=== PATIENT | male | born 1930 | race Caucasian/White ===

== ENCOUNTER 2017-03-14 08:20 | Outpatient (CLI) | payer MEDICARE, OTHER ==
[2017-03-14 12:54] LABS: BASOPHILS # (AUTO) 0.1 10^3/uL (0.0-0.1); BASOPHILS % (AUTO) 0.8 %; EOSINOPHILS # (AUTO) 0.2 10^3/uL (0.0-0.7); EOSINOPHILS % (AUTO) 3.1 %; HCT - HEMATOCRIT 39.8 % (42.0-52.0); HGB - HEMOGLOBIN 13.1 g/dL (14.0-18.0); LYMPHOCYTES # (AUTO) 2.7 10^3/uL (1.5-3.5); LYMPHOCYTES % (AUTO) 37.7 %; MEAN CORPUSCULAR HEMOGLOBIN 30.4 pg (27.0-31.0); MEAN CORPUSCULAR VOLUME 92.1 fL (80.0-94.0); MEAN PLATELET VOLUME 9.9 fL (7.4-11.4); MONOCYTES # (AUTO) 0.8 10^3/uL (0.0-1.0); NEUTROPHILS # (AUTO) 3.4 10^3/uL (1.5-6.6); NEUTROPHILS % (AUTO) 47.4 %; NUCLEATED RED BLOOD CELLS AUTO 0.1 /100WBC; RED BLOOD COUNT 4.32 10^6/uL (4.70-6.10); UNCORRECTED WHITE BLOOD COUNT 7.2 x10^3/uL; WHITE BLOOD COUNT 7.2 x10^3/uL (4.8-10.8)
[2017-03-14 13:21] LABS: ALBUMIN/GLOBULIN RATIO 1.5 (1.0-2.2); BUN - BLOOD UREA NITROGEN 20 mg/dL (6-20); CALCIUM 8.9 mg/dL (8.5-10.3); CARBON DIOXIDE - CO2 26 mmol/L (21-32); CHLORIDE 105 mmol/L (101-111); CHOL/HDL RATIO 4.5 (<5.0); CHOLESTEROL 166 mg/dL; CREATININE 1.2 mg/dL (0.6-1.2); GFR - MDRD 58 (>89); GLUCOSE 91 mg/dL (70-100); HDL CHOLESTEROL 37 mg/dL; LDL/HDL RATIO 2.9 (<3.6); POTASSIUM 4.2 mmol/L (3.5-5.0); SODIUM 137 mmol/L (135-145); TOTAL PROTEIN 6.7 g/dL (6.7-8.2); TRIGLYCERIDES 101 mg/dL; VLDL CHOLESTEROL 20 mg/dL
== END 2017-03-14 08:21 | disposition home or self-care (01) ==
LOC: LAB.WCP 08:20
PROVIDERS: ATTEND Family Medicine
DX: E78.5 Hyperlipidemia, unspecified (principal); I25.10 Atherosclerotic heart disease of native coronary artery without angina pectoris; I10 Essential (primary) hypertension; Z12.5 Encounter for screening for malignant neoplasm of prostate; N40.0 Benign prostatic hyperplasia without lower urinary tract symptoms
CPT/HCPCS: 36415; 80053; 80061; 85025; G0103; 84153

== ENCOUNTER 2017-10-21 23:40 | Outpatient (CLI) | payer MEDICARE, OTHER | END 2017-10-21 23:41 | disposition critical access hospital (66) | LOC: EMS 23:40 | PROVIDERS: ATTEND Surgery | DX: R06.02 Shortness of breath (principal); R05 Cough | CPT/HCPCS: A0425; A0429 ==

== ENCOUNTER 2017-10-21 23:59 | Inpatient (IN) | payer MEDICARE, OTHER ==
[2017-10-22 00:43] LABS: BASOPHILS % (AUTO) 0.2 %; EOSINOPHILS # (AUTO) 0.1 10^3/uL (0.0-0.7); EOSINOPHILS % (AUTO) 0.9 %; HGB - HEMOGLOBIN 14.2 g/dL (14.0-18.0); LYMPHOCYTES % (AUTO) 25.4 %; MEAN CORPUSCULAR HEMOGLOBIN 30.3 pg (27.0-31.0); MEAN CORPUSCULAR HGB CONC 33.8 g/dL (32.0-36.0); MEAN CORPUSCULAR VOLUME 89.6 fL (80.0-94.0); MEAN PLATELET VOLUME 8.9 fL (7.4-11.4); MONOCYTES # (AUTO) 0.9 10^3/uL (0.0-1.0); MONOCYTES % (AUTO) 12.2 %; NEUTROPHILS # (AUTO) 4.7 10^3/uL (1.5-6.6); NEUTROPHILS % (AUTO) 61.3 %; PLT - PLATELET COUNT 158 10^3/uL (130-450); RED CELL DISTRIBUTION WIDTH 13.6 % (12.0-15.0); WHITE BLOOD COUNT 7.7 x10^3/uL (4.8-10.8)
[2017-10-22 00:52] LABS: CALCIUM 8.3 mg/dL (8.5-10.3); CREATININE 1.2 mg/dL (0.6-1.2)
[2017-10-22 00:55] LABS: INR 2.9 (0.8-1.2); PT - PROTHROMBIN TIME 31.2 secs (9.9-12.6)
--- NOTE | 2017-10-22 01:01 | XRAY Report ---
EXAM: CHEST RADIOGRAPHY EXAM DATE: 10/22/2017 12:43 AM. CLINICAL HISTORY: Shortness of breath. COMPARISON: 10/23/2014. TECHNIQUE: 2 views. FINDINGS: Lungs/Pleura: Large lung volumes. No alveolar consolidation or pleural effusion seen. No pneumothorax . Mediastinum: Heart and mediastinal contours are unremarkable. Other: None. IMPRESSION: 1. Large lung volumes. No acute abnormality seen. [facility] Referring Provider Line: [phone] SITE ID: [id number]
[2017-10-22 01:10] LABS: D-DIMER < 200.0 ng/mL (200.0-255.0)
--- NOTE | 2017-10-22 03:28 | ED Physician Documentation ---
PD HPI CHEST PAIN - Stated complaint Stated Complaint: SOA - Chief complaint Chief Complaint: Resp - History obtained from History obtained from: Patient - History of Present Illness Timing - onset: How many days ago (3) Timing - duration: Days Timing - details: Gradual onset, Still present, Waxing and waning Pain level max: 0 Pain level now: 0 PD PAST MEDICAL HISTORY - Past Medical History Past Medical History: Yes Cardiovascular: Hypertension, Pulmonary embolism, [place] Respiratory: None Neuro: None Endocrine/Autoimmune: None GI: None : None HEENT: Glaucoma Psych: None Musculoskeletal: None Derm: None - Past Surgical History Past Surgical History: Yes Cardiovascular: Coronary stent HEENT: Cataracts - Present Medications Home Medications: Ambulatory Orders Medication Instructions Recorded Confirmed Losartan [Cozaar] 100 mg PO DAILY 02/22/14 10/22/17 Warfarin [Coumadin] 5 mg PO DAILY 10/23/14 10/22/17 Cholecalciferol (Vitamin D3) 1,000 unit PO DAILY 10/24/14 10/22/17 [Vitamin D3] Metoprolol Succinate [Toprol Xl] 50 mg PO DAILY 10/24/14 10/22/17 Brimonidine 0.2% Ophth Drops 1 drops LEFTEYE BID 10/22/17 10/23/17 [Alphagan P 0.2% Ophth Drops] Dorzolamide HCl 1 drops LEFTEYE BID 10/22/17 10/23/17 Finasteride 5 mg PO DAILY 10/22/17 10/22/17 Latanoprost 0.005% Ophth Drops 1 drops EACHEYE QPM 10/22/17 10/22/17 [Xalatan Ophth Drops] Tamsulosin [Flomax] 0.4 mg PO DAILY 10/22/17 10/22/17 Warfarin [Coumadin] 5 mg PO DAILY 10/22/17 10/22/17 - Allergies Allergies/Adverse Reactions: Allergies Allergy/AdvReac Type Severity Reaction Status Date / Time [id number]-Ibr-[id number] Reductase AdvReac Nausea Verified 10/22/17 00:11 Inhibitor - Social History Does the pt smoke?: No Smoking Status: Never smoker Does the pt drink ETOH?: No Does the pt have substance abuse?: No - Immunizations Immunizations are current?: No Immunizations: TDAP >10years/unknown - POLST Patient has POLST: Yes Results - Vitals Vitals: Oxygen O2 Source Nasal cannula Oxygen Flow Rate 2 - Labs Labs: Microbiology 10/22/17 13:15 Respiratory Culture - Preliminary Sputum Laboratory Tests 10/22/17 10/22/17 10/22/17 00:30 00:30 00:30 WBC 7.7 RBC 4.70 Hgb 14.2 Hct 42.1 MCV 89.6 MCH 30.3 MCHC 33.8 RDW 13.6 Plt Count 158 MPV 8.9 Neut # 4.7 Lymph # 2.0 [place] # 0.9 Eos # 0.1 Baso # 0.0 Absolute Nucleated RBC 0.00 Nucleated RBC % 0.0 PT 31.2 H INR 2.9 H APTT 33.8 H D-Dimer < 200.0 L Sodium 134 L Potassium 3.7 Chloride 102 Carbon Dioxide 24 Anion Gap 8.0 BUN 20 Creatinine 1.2 Estimated GFR (MDRD) 57 L Glucose 99 Lactic Acid Calcium 8.3 L Phosphorus Magnesium Total Bilirubin AST ALT Alkaline Phosphatase Troponin I B-Natriuretic Peptide Total Protein Albumin Globulin Albumin/Globulin Ratio Influenza A (Rapid) Influenza B (Rapid) Influenza Types A,B Ag 10/22/17 10/22/17 10/23/17 00:30 03:50 05:47 WBC 8.3 RBC 4.64 L Hgb 13.6 L Hct 41.7 L MCV 89.8 MCH 29.3 MCHC 32.6 RDW 13.4 Plt Count 182 MPV 8.7 Neut # 6.7 H Lymph # 1.3 L [place] # 0.4 Eos # 0.0 Baso # 0.0 Absolute Nucleated RBC 0.01 Nucleated RBC % 0.1 PT INR APTT D-Dimer Sodium Potassium Chloride Carbon Dioxide Anion Gap BUN Creatinine Estimated GFR (MDRD) Glucose Lactic Acid Calcium Phosphorus Magnesium Total Bilirubin AST ALT Alkaline Phosphatase Troponin I < 0.04 B-Natriuretic Peptide Total Protein Albumin Globulin Albumin/Globulin Ratio Influenza A (Rapid) Negative Influenza B (Rapid) Negative Influenza Types A,B Ag - 10/23/17 10/23/17 10/23/17 05:47 05:47 05:47 WBC RBC Hgb Hct MCV MCH MCHC RDW Plt Count MPV Neut # Lymph # [place] # Eos # Baso # Absolute Nucleated RBC Nucleated RBC % PT 46.5 H INR 4.4 H APTT D-Dimer Sodium 136 Potassium 4.1 Chloride 105 Carbon Dioxide 22 Anion Gap 9.0 BUN 20 Creatinine 1.0 Estimated GFR (MDRD) 71 L Glucose 133 H Lactic Acid 0.4 L Calcium 8.4 L Phosphorus 3.2 Magnesium 1.7 Total Bilirubin 0.8 AST 29 ALT 23 Alkaline Phosphatase 41 L Troponin I B-Natriuretic Peptide Total Protein 6.6 L Albumin 3.7 Globulin 2.9 Albumin/Globulin Ratio 1.3 Influenza A (Rapid) Influenza B (Rapid) Influenza Types A,B Ag 10/23/17 05:47 WBC RBC Hgb Hct MCV MCH MCHC RDW Plt Count MPV Neut # Lymph # [place] # Eos # Baso # Absolute Nucleated RBC Nucleated RBC % PT INR APTT D-Dimer Sodium Potassium Chloride Carbon Dioxide Anion Gap BUN Creatinine Estimated GFR (MDRD) Glucose Lactic Acid Calcium Phosphorus Magnesium Total Bilirubin AST ALT Alkaline Phosphatase Troponin I B-Natriuretic Peptide 98 Total Protein Albumin Globulin Albumin/Globulin Ratio Influenza A (Rapid) Influenza B (Rapid) Influenza Types A,B Ag Departure - Departure Disposition: ED Place in Observation Clinical Impression: Dyspnea Qualifiers: Dyspnea type: unspecified Qualified Code(s): R06.00 - Dyspnea, unspecified Discharge Date/Time: 10/22/17 09:31
[2017-10-22] MEDS ORDERED: DEXAMETHASONE 10 MG/ML VIAL IVP STA (03:44)
[2017-10-22] MEDS ORDERED: IPRATROPIUM/ALBUTEROL 3 ML NEB INH STA (03:44)
[2017-10-22] MEDS ORDERED: ALBUTEROL NEB 2.5 MG/3 ML INH STA (05:39)
[2017-10-22] MEDS ORDERED: SODIUM CHLORIDE FLUSH 0.9% 10 ML SYRINGE IVP PRN (07:36)
--- NOTE | 2017-10-22 08:38 | HISTORY & PHYSICAL EXAMINATION ---
Chief Complaint - Chief Complaint Chief Complaint: SOB History of Present Illness - Admitted From Admitted From:: ED - History Obtained From Records Reviewed: yes History obtained from: chart review, patient Exam Limitations: none - History of Present Illness HPI Comment/Other: Brannon Perez is an 87-year old white male with a past medical history of BPH, hypertension, hyperlipidemia, pulmonary emboli-now on Coumadin, [place]- now post coronary stents, cataracts, skin cancer, urinary retention and urgency. The patient presented to the ED with progressive cough, generalized fatigue that began Friday (4 days ago). Once in the ED the patient was found to be hypoxic and required oxygen at 2L nasal cannula, a chest x-ray was obtained which was negative for pneumonia. The patient could not ambulate with feeling as if he may collapse, and excessive coughing, so he will be admitted to observation for further symptom control using IV steroids, expectorants, and oxygen. 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 Patient had 8 brothers, some of the as a result of suicide/mental illness. Patient had 1 sister who is suspected to be alive and well. Living arrangement: At home Living Situation: With family (lives with daughter-Yolanda for the past 5 years.) Social History Notes: Patient lives in [place], [place] with his daughter, Yolanda for the past 5 years. He was to his only for 36 years and 26 years ago of cancer. 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 He has traveled the world and served in the [employer] for 23 years. He denies ETOH, or illicit drug use. He admits to tobacco use from age [age]. He wishes to be a FULL code with no heroic efforts. - Substance History Use: Uses substance without health or social issues: NONE Abuse: Recurrent use of substance despite neg consequences: NONE Dependence: Experiences withdrawal or developed tolerances: NONE - POLST Patient has POLST: No POLST Status: Full Code Meds/Allgy - Home Medications Home Medications: Ambulatory Orders Medication Instructions Recorded Confirmed Losartan [Cozaar] 100 mg PO DAILY 02/22/14 10/22/17 Warfarin [Coumadin] 5 mg PO DAILY 10/23/14 10/22/17 Cholecalciferol (Vitamin D3) 1,000 unit PO DAILY 10/24/14 10/22/17 [Vitamin D3] Metoprolol Succinate [Toprol Xl] 50 mg PO DAILY 10/24/14 10/22/17 Brimonidine 0.2% Ophth Drops 1 drops LEFTEYE BID 10/22/17 10/23/17 [Alphagan P 0.2% Ophth Drops] Dorzolamide HCl 1 drops LEFTEYE BID 10/22/17 10/23/17 Finasteride 5 mg PO DAILY 10/22/17 10/22/17 Latanoprost 0.005% Ophth Drops 1 drops EACHEYE QPM 10/22/17 10/22/17 [Xalatan Ophth Drops] Tamsulosin [Flomax] 0.4 mg PO DAILY 10/22/17 10/22/17 Warfarin [Coumadin] 5 mg PO DAILY 10/22/17 10/22/17 Albuterol Sulfate [Proventil Hfa 1 - 2 puffs INH Q4H PRN #1 inhaler 10/24/17 Inhaler] Azithromycin 500 mg PO DAILY 10 Days #10 tablet 10/24/17 guaiFENesin [Mucinex] 600 mg PO BID PRN #30 tablet 10/24/17 predniSONE [Prednisone] 20 mg PO DAILY 6 Days #9 tablet 10/24/17 - Allergies Allergies/Adverse Reactions: Allergies Allergy/AdvReac Type Severity Reaction Status Date / Time Uscdhjr-Bmv-Eoi Reductase AdvReac Nausea Verified 10/22/17 00:11 Inhibitor Review of Systems - Constitutional Constitutional: reports: Fatigue, Weakness - Eyes Eyes: reports: Corrective lenses - Ears, Nose & Throat Ears, Nose & Throat: reports: Hearing loss - Respiratory Respiratory: reports: Cough, Wheezing - All Other Systems All Other Systems: reports: Reviewed and negative Exam - Vital Signs Reviewed Vital Signs: Yes - Physical Exam General Appearance: positive: No acute distress, Alert Eyes Bilateral: positive: Normal inspection Respiratory: positive: Chest non-tender, No respiratory distress, Wheezes, Rhonchi Cardiovascular: positive: No gallop, Decreased pulse(s) Peripheral Pulses: positive: 1+ Abdomen: positive: Non-tender Back: positive: Nml inspection Skin: positive: No rash, Warm, Dry Extremities: positive: Non-tender, Full ROM, Nml appearance, No pedal edema Neurologic/Psychiatric: positive: Oriented x3, CN's nml (2-12), Motor nml, Sensation nml, Weakness, Depressed mood/affect Conclusion/Plan - Problem List (1) History of pulmonary embolism Conclusion/Plan: Patient remains on Coumadin for prophylaxis treatment of his PEs. Plan: Echocardiogram ordered, will monitor INR. (2) On continuous oral anticoagulation Conclusion/Plan: Patient takes Coumadin daily for a history of pulmonary emboli and is managed by his PCP. INR on admission was 2.9. Plan: Continue home dose of Coumadin and monitor INR daily. (3) Hypoxemia Conclusion/Plan: Patient had complaints of cough, activity intolerance and required oxygen at the time of admission. Plan: Monitor vital signs and give oxygen. (4) Cough Conclusion/Plan: Patient is noted to have a productive cough with yellow-cream sputum. He describes this cough to be progressive in nature over the past few days. Plan: order an Echo, give expectorants, IV steroids and treat for pneumonia. - Lab Results Lab results reviewed: Yes Fish Bones: 10/23/17 05:47 10/23/17 05:47 - Diagnostic Imaging Results Diagnostic Imaging Results: positive: Prelim report reviewed Diagnostic Imaging Results Comments: EXAM: CHEST RADIOGRAPHY EXAM DATE: 10/22/2017 12:43 AM. CLINICAL HISTORY: Shortness of breath. COMPARISON: 10/23/2014. TECHNIQUE: 2 views. FINDINGS: Lungs/Pleura: Large lung volumes. No alveolar consolidation or pleural effusion seen. No pneumothorax. Mediastinum: Heart and mediastinal contours are unremarkable. Other: None. IMPRESSION: 1. Large lung volumes. No acute abnormality seen. - EKG Results EKG Interpreted Independently: Yes Core Measures - Anticipated LOS I expect patient to be DC'd or transferred within 96 hours.: Yes - DVT/VTE - Prophylaxis VTE/DVT Device ordered at admit?: Yes VTE/DVT Prophylaxis med ordered at admit?: No Not Ordered - Medical Reason: Contraindicated - Stroke - Rehab Assessment Rehab services assessment to be ordered?: No Not Ordered - Medical Reason: Contraindicated - AMI - Statin at Admit Aspirin Prescribed on Admit: Yes
[2017-10-22] MEDS: SODIUM CHLORIDE 0.9% 1,000 ML IV SCH ×3 (10:05→23:10)
[2017-10-22] MEDS: SODIUM CHLORIDE FLUSH 0.9% 10 ML SYRINGE IVP SCH ×2 (10:17→17:53)
[2017-10-22] MEDS ORDERED: methylPREDNISolone SUCCINATE 40 MG/ML VIAL IVP SCH ×2 (11:00→16:00)
[2017-10-22] MEDS: guaiFENesin 600 MG TABLET PO SCH ×2 (13:14→21:07)
[2017-10-22] MEDS: cefTRIAXone 1 GM in SODIUM CHLORIDE 0.9% MINIBAG 100 ML IV SCH (15:37)
[2017-10-22] MEDS: methylPREDNISolone SUCCINATE 40 MG/ML VIAL IVP SCH ×2 (17:53→22:18)
[2017-10-22] MEDS: LATANOPROST 0.005% OPHTH DROPS EACHEYE SCH (21:07)
[2017-10-22] MEDS ORDERED: IPRATROPIUM/ALBUTEROL 3 ML NEB INH PRN (21:25)
[2017-10-22] MEDS: BRIMONIDINE 0.2% OPHTH DROPS 5 ML LEFTEYE SCH (23:08)
[2017-10-22] MEDS: DORZOLAMIDE 2% OPHTH DROPS LEFTEYE SCH (23:08)
[2017-10-23] MEDS: SODIUM CHLORIDE FLUSH 0.9% 10 ML SYRINGE IVP SCH ×3 (01:28→21:00)
[2017-10-23] MEDS: methylPREDNISolone SUCCINATE 40 MG/ML VIAL IVP SCH ×3 (05:45→21:01)
[2017-10-23 06:00] LABS: BASOPHILS % (AUTO) 0.1 %; HGB - HEMOGLOBIN 13.6 g/dL (14.0-18.0); LYMPHOCYTES # (AUTO) 1.3 10^3/uL (1.5-3.5); LYMPHOCYTES % (AUTO) 15.1 %; MEAN CORPUSCULAR HEMOGLOBIN 29.3 pg (27.0-31.0); MEAN CORPUSCULAR HGB CONC 32.6 g/dL (32.0-36.0); MEAN CORPUSCULAR VOLUME 89.8 fL (80.0-94.0); MEAN PLATELET VOLUME 8.7 fL (7.4-11.4); MONOCYTES # (AUTO) 0.4 10^3/uL (0.0-1.0); MONOCYTES % (AUTO) 4.6 %; NEUTROPHILS # (AUTO) 6.7 10^3/uL (1.5-6.6); NEUTROPHILS % (AUTO) 80.2 %; PLT - PLATELET COUNT 182 10^3/uL (130-450); RED BLOOD COUNT 4.64 10^6/uL (4.70-6.10); RED CELL DISTRIBUTION WIDTH 13.4 % (12.0-15.0); WHITE BLOOD COUNT 8.3 x10^3/uL (4.8-10.8)
[2017-10-23 06:07] LABS: ALBUMIN 3.7 g/dL (3.2-5.5); ALBUMIN/GLOBULIN RATIO 1.3 (1.0-2.2); BILIRUBIN,TOTAL 0.8 mg/dL (0.2-1.0); CALCIUM 8.4 mg/dL (8.5-10.3); MAGNESIUM 1.7 mg/dL (1.7-2.8); PHOSPHORUS 3.2 mg/dL (2.5-4.6); TOTAL PROTEIN 6.6 g/dL (6.7-8.2)
[2017-10-23 06:17] LABS: INR 4.4 (0.8-1.2); PT - PROTHROMBIN TIME 46.5 secs (9.9-12.6)
--- NOTE | 2017-10-23 08:38 | ADVANCE CARE PLANNING NOTE ---
Advance Care Planning - Date/Time Date: 10/23/17 Time: 17:00 - Purpose of encounter Text: Establish goals of care and code status. - Parties in attendance Parties in attendance: Myself and the patient Brannon Perez. - Decisional capacity Decisional capacity of: The patient understands his medical condition and has full decisional capacity. - Subjective/Patient's story Subjective/Patient's story: As per patient interview; The patient leads a fair quality of life when he is not ill. He notes that he enjoys being home and in general has days that are productive. He states that he does not want to be "kept alive artificially", but does want us to make attempts to rescue him if he is found unresponsive. - Objective/Medical story Objective/Medical Story: The patient is ambulatory and has no problem swallowing his food or completing ADL's. - Goals of Care Goals of care determinations: Treat acute illness and abide by current code status of FULL resuscitation. - Plan Plan: Follow patient's wishes of attempt rescue efforts and address again when appropriate. - Code Status Code Status: Attempt Resuscitation - Time Spent on Advance Care Planning Time spent on advance care plannin minutes
[2017-10-23] MEDS: POLYETHYLENE GLYCOL 3350 17 GM PACKET PO SCH (08:39)
[2017-10-23] MEDS: BRIMONIDINE 0.2% OPHTH DROPS 5 ML LEFTEYE SCH ×2 (08:42→20:54)
[2017-10-23] MEDS: DORZOLAMIDE 2% OPHTH DROPS LEFTEYE SCH ×2 (08:42→20:54)
[2017-10-23] MEDS: cefTRIAXone 1 GM in SODIUM CHLORIDE 0.9% MINIBAG 100 ML IV SCH (08:43)
[2017-10-23] MEDS: guaiFENesin 600 MG TABLET PO SCH ×2 (08:46→20:54)
[2017-10-23] MEDS: LOSARTAN 50 MG TABLET PO SCH (08:46)
[2017-10-23] MEDS: METOPROLOL SUCCINATE 50 MG TABLET PO SCH (08:46)
[2017-10-23] MEDS: TAMSULOSIN 0.4 MG CAPSULE PO SCH (08:46)
[2017-10-23] MEDS: FINASTERIDE 5 MG TABLET PO SCH (08:47)
[2017-10-23] MEDS ORDERED: DORZOLAMIDE 2% OPHTH DROPS LEFTEYE SCH ×2 (09:00→10:29)
[2017-10-23] MEDS ORDERED: WARFARIN 5 MG TABLET PO SCH ×2 (09:00)
[2017-10-23] MEDS ORDERED: BRIMONIDINE 0.2% OPHTH DROPS 5 ML LEFTEYE SCH (09:00)
[2017-10-23] MEDS: levoFLOXacin 500 MG/100 ML 500 MG/100 ML BAG IV SCH (11:11)
[2017-10-23] MEDS: LATANOPROST 0.005% OPHTH DROPS EACHEYE SCH (20:54)
[2017-10-24] MEDS: SODIUM CHLORIDE FLUSH 0.9% 10 ML SYRINGE IVP SCH ×2 (01:12→09:24)
[2017-10-24] MEDS: methylPREDNISolone SUCCINATE 40 MG/ML VIAL IVP SCH (06:06)
[2017-10-24] MEDS: SODIUM CHLORIDE 0.9% 1,000 ML IV SCH (06:06)
[2017-10-24 08:07] VITALS: BP 157/83
[2017-10-24] MEDS ORDERED: BRIMONIDINE 0.2% OPHTH DROPS 5 ML LEFTEYE SCH (09:00)
[2017-10-24] MEDS: POLYETHYLENE GLYCOL 3350 17 GM PACKET PO SCH (09:21)
[2017-10-24] MEDS: guaiFENesin 600 MG TABLET PO SCH (09:21)
[2017-10-24] MEDS: TAMSULOSIN 0.4 MG CAPSULE PO SCH (09:21)
[2017-10-24] MEDS: METOPROLOL SUCCINATE 50 MG TABLET PO SCH (09:21)
[2017-10-24] MEDS: LOSARTAN 50 MG TABLET PO SCH (09:21)
[2017-10-24] MEDS: BRIMONIDINE 0.2% OPHTH DROPS 5 ML LEFTEYE SCH (09:22)
[2017-10-24] MEDS: cefTRIAXone 1 GM in SODIUM CHLORIDE 0.9% MINIBAG 100 ML IV SCH (09:23)
[2017-10-24] MEDS: DORZOLAMIDE 2% OPHTH DROPS LEFTEYE SCH (09:23)
[2017-10-24] MEDS: FINASTERIDE 5 MG TABLET PO SCH (09:30)
[2017-10-24 09:48] LABS: INR 3.5 (0.8-1.2); PT - PROTHROMBIN TIME 37.6 secs (9.9-12.6)
--- NOTE | 2017-10-24 10:38 | ED Physician Documentation ---
PD HPI DYSPNEA - Stated complaint Stated Complaint: SOA - Chief complaint Chief Complaint: Resp - History obtained from History obtained from: Patient - History of Present Illness Timing - onset: How many days ago (3) Timing - duration: Days Timing - details: Gradual onset, Still present in ED Improved by: Rest Worsened by: Exertion, Coughing Associated symptoms: Cough. 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 mild sore throat. thought I had the flu, cant walk here to there without having to stop to catch my breath, per patient. Review of Systems Constitutional: reports: Reviewed and negative Eyes: reports: Reviewed and negative Ears: reports: Reviewed and negative Nose: reports: Reviewed and negative Throat: reports: Reviewed and negative Cardiac: reports: Reviewed and negative Respiratory: reports: Dyspnea, Cough GI: reports: Reviewed and negative : denies: Dysuria, Frequency Skin: reports: Reviewed and negative Musculoskeletal: reports: Reviewed and negative Neurologic: reports: Generalized weakness. 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 : Benign prostate hypertrophy, Nocturia, Frequency HEENT: Glaucoma Psych: None Musculoskeletal: None Derm: None - Past Surgical History Past Surgical History: Yes Cardiovascular: Coronary stent, Cardiac catheterization, Angioplasty HEENT: Cataracts Derm: Skin cancer surgery (left nose-healed.) - Present Medications Home Medications: Ambulatory Orders Medication Instructions Recorded Confirmed Losartan [Cozaar] 100 mg PO DAILY 02/22/14 10/22/17 Warfarin [Coumadin] 5 mg PO DAILY 10/23/14 10/22/17 Cholecalciferol (Vitamin D3) 1,000 unit PO DAILY 10/24/14 10/22/17 [Vitamin D3] Metoprolol Succinate [Toprol Xl] 50 mg PO DAILY 10/24/14 10/22/17 Brimonidine 0.2% Ophth Drops 1 drops LEFTEYE BID 10/22/17 10/23/17 [Alphagan P 0.2% Ophth Drops] Dorzolamide HCl 1 drops LEFTEYE BID 10/22/17 10/23/17 Finasteride 5 mg PO DAILY 10/22/17 10/22/17 Latanoprost 0.005% Ophth Drops 1 drops EACHEYE QPM 10/22/17 10/22/17 [Xalatan Ophth Drops] Tamsulosin [Flomax] 0.4 mg PO DAILY 10/22/17 10/22/17 Warfarin [Coumadin] 5 mg PO DAILY 10/22/17 10/22/17 - Allergies Allergies/Adverse Reactions: Allergies Allergy/AdvReac Type Severity Reaction Status Date / Time Wkmitvq-Psx-Lgc Reductase AdvReac Nausea Verified 10/22/17 00:11 Inhibitor - Social History Does the pt smoke?: No Smoking Status: Never smoker Does the pt drink ETOH?: No Does the pt have substance abuse?: No - Immunizations Immunizations are current?: No Immunizations: TDAP >10years/unknown - POLST Patient has POLST: No POLST Status: Full Code PD ED PE NORMAL - Vitals Vital signs reviewed: Yes - General General: Alert and oriented X 3, No acute distress (NAD at rest but speaks in abbreviated sentences due to dyspnea), Well developed/nourished - HEENT HEENT: Moist mucous membranes - Neck Neck: Supple, no meningeal sign - Cardiac Cardiac: RRR - Respiratory Respiratory: No respiratory distress - Abdomen Abdomen: Soft, Non tender - Derm Derm: Normal color, Warm and dry - Extremities Extremities: No edema - Neuro Neuro: Alert and oriented X 3, sheet rock taper 2-12 intact, No motor deficit, No sensory deficit, Normal speech PD ED PE EXPANDED - Cardiac Cardiac: Murmur Present (2/6 ELIEZER bilateral 2nd ICS) - Respiratory Respiratory: Wheezing, Decreased breath sounds Results - Vitals Vitals: Oxygen O2 Source Nasal cannula Oxygen Flow Rate 2 - Labs Labs: Microbiology 10/22/17 13:15 Respiratory Culture - Preliminary Sputum Laboratory Tests 10/22/17 10/22/17 10/22/17 00:30 00:30 00:30 WBC 7.7 RBC 4.70 Hgb 14.2 Hct 42.1 MCV 89.6 MCH 30.3 MCHC 33.8 RDW 13.6 Plt Count 158 MPV 8.9 Neut # 4.7 Lymph # 2.0 [place] # 0.9 Eos # 0.1 Baso # 0.0 Absolute Nucleated RBC 0.00 Nucleated RBC % 0.0 PT 31.2 H INR 2.9 H APTT 33.8 H D-Dimer < 200.0 L Sodium 134 L Potassium 3.7 Chloride 102 Carbon Dioxide 24 Anion Gap 8.0 BUN 20 Creatinine 1.2 Estimated GFR (MDRD) 57 L Glucose 99 Lactic Acid Calcium 8.3 L Phosphorus Magnesium Total Bilirubin AST ALT Alkaline Phosphatase Troponin I B-Natriuretic Peptide Total Protein Albumin Globulin Albumin/Globulin Ratio Influenza A (Rapid) Influenza B (Rapid) Influenza Types A,B Ag 10/22/17 10/22/17 10/23/17 00:30 03:50 05:47 WBC 8.3 RBC 4.64 L Hgb 13.6 L Hct 41.7 L MCV 89.8 MCH 29.3 MCHC 32.6 RDW 13.4 Plt Count 182 MPV 8.7 Neut # 6.7 H Lymph # 1.3 L [place] # 0.4 Eos # 0.0 Baso # 0.0 Absolute Nucleated RBC 0.01 Nucleated RBC % 0.1 PT INR APTT D-Dimer Sodium Potassium Chloride Carbon Dioxide Anion Gap BUN Creatinine Estimated GFR (MDRD) Glucose Lactic Acid Calcium Phosphorus Magnesium Total Bilirubin AST ALT Alkaline Phosphatase Troponin I < 0.04 B-Natriuretic Peptide Total Protein Albumin Globulin Albumin/Globulin Ratio Influenza A (Rapid) Negative Influenza B (Rapid) Negative Influenza Types A,B Ag - 10/23/17 10/23/17 10/23/17 05:47 05:47 05:47 WBC RBC Hgb Hct MCV MCH MCHC RDW Plt Count MPV Neut # Lymph # [place] # Eos # Baso # Absolute Nucleated RBC Nucleated RBC % PT 46.5 H INR 4.4 H APTT D-Dimer Sodium 136 Potassium 4.1 Chloride 105 Carbon Dioxide 22 Anion Gap 9.0 BUN 20 Creatinine 1.0 Estimated GFR (MDRD) 71 L Glucose 133 H Lactic Acid 0.4 L Calcium 8.4 L Phosphorus 3.2 Magnesium 1.7 Total Bilirubin 0.8 AST 29 ALT 23 Alkaline Phosphatase 41 L Troponin I B-Natriuretic Peptide Total Protein 6.6 L Albumin 3.7 Globulin 2.9 Albumin/Globulin Ratio 1.3 Influenza A (Rapid) Influenza B (Rapid) Influenza Types A,B Ag 10/23/17 05:47 WBC RBC Hgb Hct MCV MCH MCHC RDW Plt Count MPV Neut # Lymph # [place] # Eos # Baso # Absolute Nucleated RBC Nucleated RBC % PT INR APTT D-Dimer Sodium Potassium Chloride Carbon Dioxide Anion Gap BUN Creatinine Estimated GFR (MDRD) Glucose Lactic Acid Calcium Phosphorus Magnesium Total Bilirubin AST ALT Alkaline Phosphatase Troponin I B-Natriuretic Peptide 98 Total Protein Albumin Globulin Albumin/Globulin Ratio Influenza A (Rapid) Influenza B (Rapid) Influenza Types A,B Ag - Rads (name of study) chest xray Radiology: Prelim report reviewed, See rad report PD MEDICAL DECISION MAKING - ED course Complexity details: reviewed results, re-evaluated patient, considered differential, d/w patient ED course: improved aeration after neb treatments, but with ambulation in hallway, he would consistently drop to mid 80s pulse ox. after second neb treatment, he dropped to 84% while ambulating and was very symptomatic (felt like he could barely make it back to the room due to dyspnea). his pulse ox would correct to low/mid 90s with rest and 3 liters NC oxygen Departure - Departure Disposition: ED Place in Observation Clinical Impression: Dyspnea Qualifiers: Dyspnea type: unspecified Qualified Code(s): R06.00 - Dyspnea, unspecified Discharge Date/Time: 10/22/17 09:31
[2017-10-24] MEDS: levoFLOXacin 500 MG/100 ML 500 MG/100 ML BAG IV SCH (11:09)
--- NOTE | 2017-10-24 13:14 | PROVIDER PROGRESS NOTE ---
Subjective - Prog Note Date Prog Note Date: 10/23/17 Prog Note Time: 08:00 - Subjective Pt reports feeling: Improved Subjective: Rene states that he still feels "under the weather" and is not opposed to staying another day. He denies increased SOB, chest pain, N/V, or a new cough. Current Medications - Current Medications Current Medications: Active Medications Albuterol/Ipratropium (Duoneb) 3 ml INH Q4HR PRN PRN Reason: Wheezing Brimonidine Tartrate (Alphagan P 0.2% Ophth Drops) 1 drops LEFTEYE BID [facility] Last Admin: 10/24/17 09:22 Dose: 1 drops Dorzolamide HCl (Trusopt 2% Ophth Drops) 1 drops LEFTEYE BID [facility] Last Admin: 10/24/17 09:23 Dose: 1 drops Finasteride (Proscar) 5 mg PO DAILY [facility] Last Admin: 10/24/17 09:30 Dose: 5 mg Guaifenesin (Mucinex) 600 mg PO BID [facility] Last Admin: 10/24/17 09:21 Dose: 600 mg Ceftriaxone Sodium 1 gm/ (Sodium Chloride) 100 mls @ 200 mls/hr IV DAILY [facility] Last Infusion: 10/24/17 10:08 Dose: Infused Sodium Chloride (Normal Saline 0.9%) 1,000 mls @ 40 mls/hr IV .Q25H [facility] Last Admin: 10/24/17 06:06 Dose: Not Given Levofloxacin (Levaquin 500 Mg/100 Ml) 500 mg in 100 mls @ 100 mls/hr IV Q24H [facility] Last Infusion: 10/24/17 12:22 Dose: Infused Latanoprost (Xalatan Ophth Drops) 1 drops EACHEYE QPM [facility] Last Admin: 10/23/17 20:54 Dose: 1 drops Losartan Potassium (Cozaar) 100 mg PO DAILY [facility] Last Admin: 10/24/17 09:21 Dose: 100 mg Methylprednisolone (Solu-Medrol (40mg Vial)) 40 mg IVP TID [facility] Last Admin: 10/24/17 06:06 Dose: 40 mg Metoprolol Succinate (Toprol Xl) 50 mg PO DAILY [facility] Last Admin: 10/24/17 09:21 Dose: 50 mg Polyethylene Glycol (Miralax) 17 gm PO DAILY [facility] Last Admin: 10/24/17 09:21 Dose: 17 gm Sodium Chloride (Normal Saline Flush 0.9%) 10 ml IVP PRN PRN PRN Reason: NEEDED PER PROVIDER ORDERS Last Admin: 10/22/17 22:17 Dose: 10 ml Sodium Chloride (Normal Saline Flush 0.9%) 10 ml IVP 0100,0900,1700 [facility] Last Admin: 10/24/17 09:24 Dose: Not Given Tamsulosin HCl (Flomax) 0.4 mg PO DAILY [facility] Last Admin: 10/24/17 09:21 Dose: 0.4 mg Losartan [Cozaar] 100 mg PO DAILY 02/22/14 Warfarin [Coumadin] 5 mg PO DAILY 10/23/14 Cholecalciferol (Vitamin D3) [Vitamin D3] 1,000 unit PO DAILY 10/24/14 Metoprolol Succinate [Toprol Xl] 50 mg PO DAILY 10/24/14 Brimonidine 0.2% Ophth Drops [Alphagan P 0.2% Ophth Drops] 1 drops LEFTEYE BID 10/22/17 Dorzolamide HCl 1 drops LEFTEYE BID 10/22/17 Finasteride 5 mg PO DAILY 10/22/17 Latanoprost 0.005% Ophth Drops [Xalatan Ophth Drops] 1 drops EACHEYE QPM Tamsulosin [Flomax] 0.4 mg PO DAILY 10/22/17 Warfarin [Coumadin] 5 mg PO DAILY 10/22/17 Objective - Vital Signs/Intake & Output Reviewed Vital Signs: Yes Vital Signs: Vital Signs x48h Temp Pulse Resp BP Pulse Ox 10/24/17 08:00 36.5 C 77 14 157/83 H 93 Intake & Output: Intake & Output 10/21/17 10/22/17 10/23/17 10/24/17 23:59 23:59 23:59 23:59 Intake Total 1216.667 750 Balance 1216.667 750 - Objective General Appearance: positive: No acute distress, Alert Eyes Bilateral: positive: Normal inspection, PERRL ENT: positive: ENT inspection nml, Pharynx nml, No signs of dehydration Neck: positive: Nml inspection, Thyroid nml, No JVD, Stiff neck Respiratory: positive: Chest non-tender, No respiratory distress, Wheezes, Rhonchi Cardiovascular: positive: Regular rate & rhythm Peripheral Pulses: 1+ Radial (R), 1+ Radial (L) Abdomen: positive: Non-tender, No organomegaly, Nml bowel sounds Back: positive: Nml inspection Skin: positive: Color nml, No rash, Warm, Dry, Other (scattered bruises, d/t chronic warfarin use.) Extremities: positive: Non-tender, Full ROM, No pedal edema, Joint swelling Neurologic/Psychiatric: positive: Oriented x3, CN's nml (2-12), Motor nml, Weakness, Depressed mood/affect Reflexes: Bicep (R): 3+, Bicep (L): 3+ - Lab Results Fish Bones: 10/23/17 05:47 10/23/17 05:47 Other Labs: Lab Results x24hrs 10/24/17 10/24/17 Range/Units 09:35 05:22 PT 37.6 H 11.4 (9.9-12.6) secs INR 3.5 H 1.0 (0.8-1.2) - Diagnostic Imaging Diagnostic Imaging Results: positive: Final report reviewed Assessment/Plan - Problem List (1) History of pulmonary embolism Impression: Patient remains on Coumadin for prophylaxis treatment of his PEs. Plan: Echocardiogram ordered, will monitor INR. (2) On continuous oral anticoagulation Impression: Patient takes Coumadin daily for a history of pulmonary emboli and is managed by his PCP. INR on admission was 2.9. Today INR was elevated at 4.4, so coumadin will now be on hold. Plan: Hold Coumadin today and monitor INR daily. (3) Cough Impression: Patient is noted to have a productive cough with yellow-cream sputum. He describes this cough to be progressive in nature over the past few days. An echo was completed on 10/22/17 and shows mild pulmonary hypertension with a PASP of 40mmHg. Plan: Continue to give expectorants, IV steroids and treat for pneumonia. (4) Hypoxemia Impression: Patient had complaints of cough, activity intolerance and required oxygen at the time of admission. Patient was given as much as 2.5L per nasal cannula. Plan: Monitor vital signs and give oxygen.
--- NOTE | 2017-10-24 13:21 | Discharge Plan ---
Discharge Plan Disposition: 01 Home, Self Care Condition: Good Prescriptions: Albuterol Sulfate [Proventil Hfa Inhaler] 1 - 2 puffs INH Q4H PRN #1 inhaler PRN Reason: Shortness Of Air/Wheezing Azithromycin 500 mg PO DAILY 10 Days #10 tablet guaiFENesin [Mucinex] 600 mg PO BID PRN #30 tablet PRN Reason: Cough predniSONE [Prednisone] 20 mg PO DAILY 6 Days #9 tablet Diet: Cardiac Activity Restrictions: No Restrictions Shower Restrictions: No Driving Restrictions: No Weight Bearing: Full Weight Additional Instructions or Follow Up instructions: You were admitted to the hospital for shortness of breath, coughing and activity intolerance. You were treated with IV antibiotics and steroids. No Smoking: If you smoke, Please STOP! Call for help. Follow-up with: Herrera Brennan MD [Primary Care Provider] -
--- NOTE | 2017-10-24 13:41 | DISCHARGE SUMMARY ---
Discharge Summary Admit Date: 10/22/17 Discharge Date: 10/24/17 Discharging Provider: CONY Morales Primary Care Provider: Jamal Brennan Code Status: Attempt Resuscitation Condition at Discharge: Good Discharge Disposition: 01 Home, Self Care - DIAGNOSES Admission Diagnoses: On continuous oral anticoagulation (Z79.01) Cough (R05) History of pulmonary embolism (Z86.711) Hypoxia (R09.02) Discharge Diagnoses with Status of Each Condition: Cough (R05)- improving at the time of discharge, expectorant prescribed. Hypoxia (R09.02)- resolved. On continuous oral anticoagulation (Z79.01)- chronic, coumadin to continue. History of pulmonary embolism (Z86.711)- chronic anticoagulant use. Pneumonia (J18.9)- ruled out, but treated prophylactically due to lung disease. - HPI History of Present Illness: Brannon Perez is an 87-year old white male with a past medical history of BPH, hypertension, hyperlipidemia, pulmonary emboli-now on Coumadin, [place]- now post coronary stents, cataracts, skin cancer, urinary retention and urgency. The patient presented to the ED with progressive cough, generalized fatigue that began Friday (4 days ago). Once in the ED the patient was found to be hypoxic and required oxygen at 2L nasal cannula, a chest x-ray was obtained which was negative for pneumonia. The patient could not ambulate with feeling as if he may collapse, and excessive coughing, so he will be admitted to observation for further symptom control using IV steroids, expectorants, and oxygen. - HOSPITAL COURSE Hospital Course: (1) History of pulmonary embolism: Patient remains on Coumadin for prophylaxis treatment of his pulmonary emboli. Echocardiogram was ordered, and daily INR's were monitored. (2) On continuous oral anticoagulation: Patient takes Coumadin daily for a history of pulmonary emboli and is managed by his PCP. INR on admission was 2.9 and ranged between 3.5-4.4 during his hospital stay. His coumadin was held x1 day, then resumed at the time of discharge. He is to continue to be monitored by PCP while at home. (3) Cough: Patient is noted to have a productive cough with yellow-cream sputum. He describes this cough to be progressive in nature over the past few days. An echo was completed on 10/22/17 and shows mild pulmonary hypertension with a PASP of 40mmHg. Patient was prescribed expectorants oral antibiotics and a steroid taper at the time of discharge. (4) Hypoxemia: Patient had complaints of cough, activity intolerance and required oxygen at the time of admission. Patient was given as much as 2.5L per nasal cannula, but did not require this at the time of discharge. An echocardiogram was completed and showed a stable EF of 65%, mild pulmonary hypertension with an elevated RVSP of 40mmHg. Disposition: Patient was discharged in stable comdition and transported via private car home. - ALLERGIES Allergies/Adverse Reactions: Allergies Allergy/AdvReac Type Severity Reaction Status Date / Time [id number] Reductase AdvReac Nausea Verified 10/22/17 00:11 Inhibitor - MEDICATIONS Home Medications: Ambulatory Orders Medication Instructions Recorded Confirmed Losartan [Cozaar] 100 mg PO DAILY 02/22/14 10/22/17 Warfarin [Coumadin] 5 mg PO DAILY 10/23/14 10/22/17 Cholecalciferol (Vitamin D3) 1,000 unit PO DAILY 10/24/14 10/22/17 [Vitamin D3] Metoprolol Succinate [Toprol Xl] 50 mg PO DAILY 10/24/14 10/22/17 Brimonidine 0.2% Ophth Drops 1 drops LEFTEYE BID 10/22/17 10/23/17 [Alphagan P 0.2% Ophth Drops] Dorzolamide HCl 1 drops LEFTEYE BID 10/22/17 10/23/17 Finasteride 5 mg PO DAILY 10/22/17 10/22/17 Latanoprost 0.005% Ophth Drops 1 drops EACHEYE QPM 10/22/17 10/22/17 [Xalatan Ophth Drops] Tamsulosin [Flomax] 0.4 mg PO DAILY 10/22/17 10/22/17 Warfarin [Coumadin] 5 mg PO DAILY 10/22/17 10/22/17 Albuterol Sulfate [Proventil Hfa 1 - 2 puffs INH Q4H PRN #1 inhaler 10/24/17 Inhaler] Azithromycin 500 mg PO DAILY 10 Days #10 tablet 10/24/17 guaiFENesin [Mucinex] 600 mg PO BID PRN #30 tablet 10/24/17 predniSONE [Prednisone] 20 mg PO DAILY 6 Days #9 tablet 10/24/17 - PHYSICAL EXAM AT DISCHARGE General Appearance: positive: No acute distress, Alert Eyes Bilateral: positive: Normal inspection, PERRL ENT: positive: ENT inspection nml, Pharynx nml, No signs of dehydration Neck: positive: Nml inspection, Thyroid nml, No JVD Respiratory: positive: Chest non-tender, No respiratory distress, Breath sounds nml Cardiovascular: positive: Regular rate & rhythm, No gallop, Systolic murmur Peripheral Pulses: positive: 2+ Abdomen: positive: Non-tender, No organomegaly, Nml bowel sounds Back: positive: Nml inspection Skin: positive: No rash, Warm, Dry Extremities: positive: Non-tender, Full ROM, Nml appearance Neurologic/Psychiatric: positive: Oriented x3, CN's nml (2-12), Motor nml, Sensation nml, Mood/affect nml Reflexes: Bicep (R): 3+, Bicep (L): 3+ - LABS Result Diagrams: 10/23/17 05:47 10/23/17 05:47 - DIAGNOSTIC IMAGING Diagnostic Imaging Results: Final report reviewed Diagnostic Imaging Results Comments: EXAM: CHEST RADIOGRAPHY EXAM DATE: 10/22/2017 12:43 AM. CLINICAL HISTORY: Shortness of breath. COMPARISON: 10/23/2014. TECHNIQUE: 2 views. FINDINGS: Lungs/Pleura: Large lung volumes. No alveolar consolidation or pleural effusion seen. No pneumothorax. Mediastinum: Heart and mediastinal contours are unremarkable. Other: None. IMPRESSION: 1. Large lung volumes. No acute abnormality seen. - FOLLOW UP Follow Up: Disposition: 01 Home, Self Care Condition: Good Prescriptions: Albuterol Sulfate [Proventil Hfa Inhaler] 1 - 2 puffs INH Q4H PRN #1 inhaler PRN Reason: Shortness Of Air/Wheezing Azithromycin 500 mg PO DAILY 10 Days #10 tablet guaiFENesin [Mucinex] 600 mg PO BID PRN #30 tablet PRN Reason: Cough predniSONE [Prednisone] 20 mg PO DAILY 6 Days #9 tablet Diet: Cardiac Activity Restrictions: No Restrictions Shower Restrictions: No Driving Restrictions: No Weight Bearing: Full Weight Additional Instructions or Follow Up instructions: You were admitted to the hospital for shortness of breath, coughing and activity intolerance. You were treated with IV antibiotics and steroids. Please continue a short steroid taper, and antibiotics at home. - TIME SPENT Time Spent in Discharge (Minutes): 45
== END 2017-10-24 14:03 | disposition home or self-care (01) | DRG 206 ==
LOC: EDUNIT# → SUPCPDRO 23:59 → ED 23:59 → OBS 10-22 07:36 → OBSVTOIN 10-23 10:13 → MS2 10-23 16:41
PROVIDERS: ADMIT Nurse Practitioner; ATTEND Nurse Practitioner
DX: R06.00 Dyspnea, unspecified (principal); R09.02 Hypoxemia; R05 Cough; I27.20 Pulmonary hypertension, unspecified; I10 Essential (primary) hypertension; E78.5 Hyperlipidemia, unspecified; K21.9 Gastro-esophageal reflux disease without esophagitis; N40.1 Benign prostatic hyperplasia with lower urinary tract symptoms; R35.1 Nocturia; R35.0 Frequency of micturition; H40.9 Unspecified glaucoma; Z79.01 Long term (current) use of anticoagulants; Z79.899 Other long term (current) drug therapy; I25.2 Old myocardial infarction; Z95.5 Presence of coronary angioplasty implant and graft; Z86.711 Personal history of pulmonary embolism; Z85.828 Personal history of other malignant neoplasm of skin
CPT/HCPCS: 36415; 71046; 80048; 80053; 83605; 83735; 83880; 84100; 84484; 85025; 85379; 85610; 85730; 87070; 87077; 87205; 87275; 87276; 93005; 93306; 94640; 96361; 96365; 96366; 96375; 96376; 99284; 99285

== ENCOUNTER 2018-10-16 08:00 | Outpatient (CLI) | payer MEDICARE, OTHER | END 2018-10-16 23:59 | disposition home or self-care (01) | LOC: LAB.WCP 08:00 | PROVIDERS: ATTEND Family Medicine | DX: I26.99 Other pulmonary embolism without acute cor pulmonale (principal); Z79.01 Long term (current) use of anticoagulants ==

== ENCOUNTER 2018-12-11 08:00 | Outpatient (CLI) | payer MEDICARE, OTHER | END 2018-12-11 08:01 | disposition home or self-care (01) | LOC: LAB.WCP 08:00 | PROVIDERS: ATTEND Family Medicine | DX: I26.99 Other pulmonary embolism without acute cor pulmonale (principal); Z79.01 Long term (current) use of anticoagulants ==

== ENCOUNTER 2019-01-08 08:00 | Outpatient (CLI) | payer MEDICARE, OTHER | END 2019-01-08 23:59 | disposition home or self-care (01) | LOC: LAB.WCP 08:00 | PROVIDERS: ATTEND Family Medicine | DX: I26.99 Other pulmonary embolism without acute cor pulmonale (principal); Z79.01 Long term (current) use of anticoagulants ==

== ENCOUNTER 2019-02-05 08:00 | Outpatient (CLI) | payer MEDICARE, OTHER | END 2019-02-05 08:01 | disposition home or self-care (01) | LOC: LAB.WCP 08:00 | PROVIDERS: ATTEND Family Medicine | DX: I26.99 Other pulmonary embolism without acute cor pulmonale (principal); Z79.01 Long term (current) use of anticoagulants ==

== ENCOUNTER 2019-03-05 08:00 | Outpatient (CLI) | payer MEDICARE, OTHER | END 2019-03-05 08:01 | disposition home or self-care (01) | LOC: LAB.WCP 08:00 | PROVIDERS: ATTEND Family Medicine | DX: I26.99 Other pulmonary embolism without acute cor pulmonale (principal); D68.59 Other primary thrombophilia; Z79.01 Long term (current) use of anticoagulants ==

== ENCOUNTER 2019-03-12 08:00 | Outpatient (CLI) | payer MEDICARE, OTHER | END 2019-03-12 23:59 | disposition home or self-care (01) | LOC: LAB.WCP 08:00 | PROVIDERS: ATTEND Family Medicine | DX: I26.99 Other pulmonary embolism without acute cor pulmonale (principal); Z79.01 Long term (current) use of anticoagulants ==

== ENCOUNTER 2019-03-26 08:00 | Outpatient (CLI) | payer MEDICARE, OTHER | END 2019-03-26 23:59 | disposition home or self-care (01) | LOC: LAB.WCP 08:00 | PROVIDERS: ATTEND Family Medicine | DX: I26.99 Other pulmonary embolism without acute cor pulmonale (principal); D68.59 Other primary thrombophilia; Z79.01 Long term (current) use of anticoagulants ==

== ENCOUNTER 2019-04-23 08:00 | Outpatient (CLI) | payer MEDICARE, OTHER | END 2019-04-23 23:59 | disposition home or self-care (01) | LOC: LAB.WCP 08:00 | PROVIDERS: ATTEND Family Medicine | DX: D68.59 Other primary thrombophilia (principal); Z79.01 Long term (current) use of anticoagulants ==

== ENCOUNTER 2019-05-17 08:00 | Outpatient (CLI) | payer MEDICARE, OTHER | END 2019-05-17 23:59 | disposition home or self-care (01) | LOC: LAB.WCP 08:00 | PROVIDERS: ATTEND Physician Assistant Medical | DX: I26.99 Other pulmonary embolism without acute cor pulmonale (principal); D68.59 Other primary thrombophilia; Z79.01 Long term (current) use of anticoagulants ==

== ENCOUNTER 2019-06-14 08:00 | Outpatient (CLI) | payer MEDICARE, OTHER | END 2019-06-14 23:59 | disposition home or self-care (01) | LOC: LAB.WCP 08:00 | PROVIDERS: ATTEND Physician Assistant Medical | DX: Z79.01 Long term (current) use of anticoagulants (principal); D68.59 Other primary thrombophilia ==

== ENCOUNTER 2019-07-07 07:00 | Outpatient (CLI) | payer MEDICARE, OTHER ==
[2019-07-07 13:05] LABS: BASOPHILS # (AUTO) 0.1 10^3/uL (0.0-0.1); BASOPHILS % (AUTO) 0.7 %; EOSINOPHILS # (AUTO) 0.2 10^3/uL (0.0-0.7); EOSINOPHILS % (AUTO) 2.5 %; HGB - HEMOGLOBIN 13.3 g/dL (14.0-18.0); LYMPHOCYTES # (AUTO) 2.6 10^3/uL (1.5-3.5); LYMPHOCYTES % (AUTO) 36.4 %; MEAN CORPUSCULAR HEMOGLOBIN 29.8 pg (27.0-31.0); MEAN CORPUSCULAR HGB CONC 30.7 g/dL (32.0-36.0); MEAN CORPUSCULAR VOLUME 96.9 fL (80.0-94.0); MEAN PLATELET VOLUME 11.7 fL (7.4-11.4); MONOCYTES # (AUTO) 0.9 10^3/uL (0.0-1.0); MONOCYTES % (AUTO) 12.2 %; NEUTROPHILS # (AUTO) 3.4 10^3/uL (1.5-6.6); NEUTROPHILS % (AUTO) 47.6 %; PLT - PLATELET COUNT 207 10^3/uL (130-450); RED BLOOD COUNT 4.47 10^6/uL (4.70-6.10); RED CELL DISTRIBUTION WIDTH 13.6 % (12.0-15.0); WHITE BLOOD COUNT 7.1 x10^3/uL (4.8-10.8)
[2019-07-07 13:29] LABS: ALBUMIN 3.9 g/dL (3.2-5.5); ALBUMIN/GLOBULIN RATIO 1.4 (1.0-2.2); ALKALINE PHOSPHATASE 41 IU/L (42-121); ALT ALANINE AMINOTRANSFERASE 27 IU/L (10-60); AST ASPARTATE AMINOTRANSFERASE 25 IU/L (10-42); BILIRUBIN,TOTAL 0.9 mg/dL (0.2-1.0); BUN - BLOOD UREA NITROGEN 16 mg/dL (6-20); CALCIUM 8.8 mg/dL (8.5-10.3); CARBON DIOXIDE - CO2 27 mmol/L (21-32); CHLORIDE 105 mmol/L (101-111); CHOL/HDL RATIO 4.5 (<5.0); CHOLESTEROL 197 mg/dL; CREATININE 1.3 mg/dL (0.6-1.2); GFR - MDRD 52 (>89); GLUCOSE 107 mg/dL (70-100); HDL CHOLESTEROL 44 mg/dL; LDL CHOLESTEROL,CALCULATED 118 mg/dL; LDL/HDL RATIO 2.7 (<3.6); SODIUM 141 mmol/L (135-145); TOTAL PROTEIN 6.7 g/dL (6.7-8.2); VLDL CHOLESTEROL 35 mg/dL
== END 2019-07-07 23:59 | disposition home or self-care (01) ==
LOC: LAB.WCP 07:00
PROVIDERS: ATTEND Family Medicine
DX: I25.10 Atherosclerotic heart disease of native coronary artery without angina pectoris (principal); I10 Essential (primary) hypertension; E78.5 Hyperlipidemia, unspecified; D68.59 Other primary thrombophilia
CPT/HCPCS: 36415; 80053; 80061; 83721; 84443; 85025

== ENCOUNTER 2019-07-12 08:00 | Outpatient (CLI) | payer MEDICARE, OTHER | END 2019-07-12 23:59 | disposition home or self-care (01) | LOC: LAB.WCP 08:00 | PROVIDERS: ATTEND Physician Assistant | DX: Z79.01 Long term (current) use of anticoagulants (principal); D68.59 Other primary thrombophilia; I26.99 Other pulmonary embolism without acute cor pulmonale ==

== ENCOUNTER 2019-07-19 08:00 | Outpatient (CLI) | payer MEDICARE, OTHER | END 2019-07-19 23:59 | disposition home or self-care (01) | LOC: LAB.WCP 08:00 | PROVIDERS: ATTEND Physician Assistant Medical | DX: Z79.01 Long term (current) use of anticoagulants (principal); I26.99 Other pulmonary embolism without acute cor pulmonale; D68.59 Other primary thrombophilia ==

== ENCOUNTER 2019-08-06 08:00 | Outpatient (CLI) | payer MEDICARE, OTHER | END 2019-08-06 23:59 | disposition home or self-care (01) | LOC: LAB.WCP 08:00 | PROVIDERS: ATTEND Family Medicine | DX: Z79.01 Long term (current) use of anticoagulants (principal); D68.59 Other primary thrombophilia ==

== ENCOUNTER 2019-09-06 08:00 | Outpatient (CLI) | payer MEDICARE, OTHER | END 2019-09-06 23:59 | disposition home or self-care (01) | LOC: LAB.WCP 08:00 | PROVIDERS: ATTEND Physician Assistant Medical | DX: Z79.01 Long term (current) use of anticoagulants (principal); I26.99 Other pulmonary embolism without acute cor pulmonale ==

== ENCOUNTER 2019-10-04 08:00 | Outpatient (CLI) | payer MEDICARE, OTHER | END 2019-10-04 23:59 | disposition home or self-care (01) | LOC: DI.WCP 08:00 | PROVIDERS: ATTEND Physician Assistant Medical | DX: D68.59 Other primary thrombophilia (principal); Z79.01 Long term (current) use of anticoagulants; I26.99 Other pulmonary embolism without acute cor pulmonale ==

== ENCOUNTER 2019-10-28 05:20 | Emergency (ER) | payer MEDICARE, OTHER ==
[2019-10-28 05:30] VITALS: BP 141/64
--- NOTE | 2019-10-28 05:54 | ED Physician Documentation ---
History of Present Illness - Stated complaint Stated Complaint: TIGHT MUSCLES - Chief complaint Chief Complaint: General - History obtained from History obtained from: Patient (The patient is an 89-year-old male who presents with a chief complaint of pain all over.The patient reports that over the last 3 days he is having worsening muscle a excessive and diffuse pain throughout his entire body.He denies chest pain or any recent falls or any recent traumas he is anticoagulated with warfarin.He reports he is had decreased urine output.) Review of Systems Ten Systems: 10 systems reviewed and negative Constitutional: reports: Myalgias, Fatigue Eyes: reports: Reviewed and negative Ears: reports: Reviewed and negative Nose: reports: Reviewed and negative Throat: reports: Reviewed and negative Cardiac: reports: Reviewed and negative Respiratory: reports: Reviewed and negative GI: reports: Reviewed and negative : reports: Reviewed and negative Skin: reports: Reviewed and negative Musculoskeletal: reports: Reviewed and negative Neurologic: reports: Reviewed and negative Psychiatric: reports: Reviewed and negative Endocrine: reports: Reviewed and negative Immunocompromised: reports: Reviewed and negative PD PAST MEDICAL HISTORY - Past Medical History Cardiovascular: Hypertension, Pulmonary embolism, [place] Respiratory: None Endocrine/Autoimmune: None GI: GERD [employer]CH[employer]ISE [employer]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 : Benign prostate hypertrophy, Nocturia, Frequency HEENT: Glaucoma Psych: None Musculoskeletal: None Derm: None - Past Surgical History Past Surgical History: Yes Cardiovascular: Coronary stent, Cardiac catheterization, Angioplasty HEENT: Cataracts Derm: Skin cancer surgery (left nose-healed.) - Present Medications Home Medications: Ambulatory Orders Medication Instructions Recorded Confirmed Losartan [Cozaar] 100 mg PO DAILY 02/22/14 10/22/17 Warfarin [Coumadin] 5 mg PO DAILY 10/23/14 10/22/17 Cholecalciferol (Vitamin D3) 1,000 unit PO DAILY 10/24/14 10/22/17 [Vitamin D3] Metoprolol Succinate [Toprol Xl] 50 mg PO DAILY 10/24/14 10/22/17 Brimonidine 0.2% Ophth Drops 1 drops LEFTEYE BID 10/22/17 10/23/17 [Alphagan P 0.2% Ophth Drops] Dorzolamide HCl 1 drops LEFTEYE BID 10/22/17 10/23/17 Finasteride 5 mg PO DAILY 10/22/17 10/22/17 Latanoprost 0.005% Ophth Drops 1 drops EACHEYE QPM 10/22/17 10/22/17 [Xalatan Ophth Drops] Tamsulosin [Flomax] 0.4 mg PO DAILY 10/22/17 10/22/17 - Allergies Allergies/Adverse Reactions: Allergies Allergy/AdvReac Type Severity Reaction Status Date / Time [id number]-Aqa-[id number] Reductase AdvReac Nausea Verified 10/22/17 00:11 Inhibitor - Social History Does the pt smoke?: No Smoking Status: Never smoker Does the pt drink ETOH?: No Does the pt have substance abuse?: No - Immunizations Immunizations are current?: No Immunizations: TDAP >10years/unknown - POLST Patient has POLST: No POLST Status: Full Code PD ED PE NORMAL - Vitals Vital signs reviewed: Yes - General General: Alert and oriented X 3, No acute distress, Well developed/nourished - HEENT HEENT: Atraumatic, PERRL, Moist mucous membranes, Pharynx benign - Neck Neck: Supple, no meningeal sign, No adenopathy - Cardiac Cardiac: RRR, No murmur, Strong equal pulses - Respiratory Respiratory: No respiratory distress, Clear bilaterally - Abdomen Abdomen: Normal bowel sounds, Soft, Non tender, Non distended, No organomegaly - Back Back: No CVA TTP, No spinal TTP - Derm Derm: Normal color, Warm and dry, No rash - Extremities Extremities: No deformity, No tenderness to palpate, Normal ROM s pain, No calf tenderness / cord - Neuro Neuro: Alert and oriented X 3, police service technician 2-12 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, No motor deficit, No sensory deficit, Normal speech - Psych Psych: Normal mood, Normal affect Results - Vitals Vitals: Vital Signs - 24 hr 10/28/19 05:23 Temperature 36.6 C Heart Rate 74 Respiratory 18 Rate Blood Pressure 141/64 H O2 Saturation 97 Oxygen O2 Source Room air - Labs Labs: Laboratory Tests 10/28/19 10/28/19 10/28/19 06:05 06:05 06:05 WBC 8.9 RBC 4.19 L Hgb 12.9 L Hct 39.6 L MCV 94.5 H MCH 30.8 MCHC 32.6 RDW 12.7 Plt Count 266 MPV 9.8 Neut # (Auto) 5.6 Lymph # (Auto) 2.1 [place] # (Auto) 1.0 Eos # (Auto) 0.1 Baso # (Auto) 0.0 Absolute Nucleated RBC 0.00 Nucleated RBC % 0.0 PT 31.9 H INR 3.0 H APTT 41.0 H Sodium 138 Potassium 3.7 Chloride 104 Carbon Dioxide 26 Anion Gap 8.0 BUN 21 H Creatinine 1.2 Estimated GFR (MDRD) 57 L Glucose 110 H Calcium 8.7 Phosphorus 3.1 Total Bilirubin 1.1 H Direct Bilirubin 0.2 AST 24 ALT 18 Alkaline Phosphatase 48 Total Creatine Kinase 118 Total Protein 7.1 Albumin 3.9 Globulin 3.2 Lipase 39 PD MEDICAL DECISION MAKING - ED course Complexity details: reviewed results, re-evaluated patient (06:40 patient feels better after tylenol, labs are unremarkable. will f/u w pcp prn.), considered differential (dehydration, viral syndrome, rhabo, ARF, metabolic derangement. ), d/w patient Departure - Departure Disposition: 01 Home, Self Care Clinical Impression: Weakness generalized Condition: Stable Instructions: ED Muscle Aching Follow-Up: Konstantin Lares MD [Primary Care Provider] - 10/28/19
[2019-10-28] MEDS ORDERED: ACETAMINOPHEN 325 MG TABLET PO STA (06:01)
[2019-10-28] MEDS ORDERED: SODIUM CHLORIDE 0.9% 1,000 ML IV ONE (06:01)
[2019-10-28 06:17] LABS: BASOPHILS % (AUTO) 0.4 %; EOSINOPHILS # (AUTO) 0.1 10^3/uL (0.0-0.7); EOSINOPHILS % (AUTO) 0.7 %; HGB - HEMOGLOBIN 12.9 g/dL (14.0-18.0); LYMPHOCYTES # (AUTO) 2.1 10^3/uL (1.5-3.5); LYMPHOCYTES % (AUTO) 23.8 %; MEAN CORPUSCULAR HEMOGLOBIN 30.8 pg (27.0-31.0); MEAN CORPUSCULAR HGB CONC 32.6 g/dL (32.0-36.0); MEAN CORPUSCULAR VOLUME 94.5 fL (80.0-94.0); MEAN PLATELET VOLUME 9.8 fL (7.4-11.4); MONOCYTES % (AUTO) 11.7 %; NEUTROPHILS # (AUTO) 5.6 10^3/uL (1.5-6.6); PLT - PLATELET COUNT 266 10^3/uL (130-450); RED BLOOD COUNT 4.19 10^6/uL (4.70-6.10); RED CELL DISTRIBUTION WIDTH 12.7 % (12.0-15.0); WHITE BLOOD COUNT 8.9 x10^3/uL (4.8-10.8)
[2019-10-28 06:23] LABS: PT - PROTHROMBIN TIME 31.9 secs (9.9-12.6)
[2019-10-28 06:33] LABS: ALBUMIN 3.9 g/dL (3.2-5.5); BILIRUBIN,DIRECT 0.2 mg/dL (0.1-0.5); BILIRUBIN,TOTAL 1.1 mg/dL (0.2-1.0); CALCIUM 8.7 mg/dL (8.5-10.3); CREATININE 1.2 mg/dL (0.6-1.2); PHOSPHORUS 3.1 mg/dL (2.5-4.6); TOTAL PROTEIN 7.1 g/dL (6.7-8.2)
== END 2019-10-28 06:47 | disposition home or self-care (01) ==
LOC: ED 05:20
DX: R53.1 Weakness (principal); I10 Essential (primary) hypertension; Z79.01 Long term (current) use of anticoagulants
CPT/HCPCS: 36415; 80048; 80076; 82550; 83690; 84100; 85025; 85610; 85730; 99283; 99284; A9270

== ENCOUNTER 2019-11-26 08:00 | Outpatient (CLI) | payer MEDICARE, OTHER | END 2019-11-26 08:01 | disposition home or self-care (01) | LOC: LAB.WCP 08:00 | PROVIDERS: ATTEND Family Medicine | DX: D68.59 Other primary thrombophilia (principal); Z79.01 Long term (current) use of anticoagulants; I26.99 Other pulmonary embolism without acute cor pulmonale ==

== ENCOUNTER 2019-12-20 08:00 | Outpatient (CLI) | payer MEDICARE, OTHER | END 2019-12-20 23:59 | disposition home or self-care (01) | LOC: LAB.WCP 08:00 | PROVIDERS: ATTEND Family Medicine | DX: D68.59 Other primary thrombophilia (principal); Z79.01 Long term (current) use of anticoagulants ==

== ENCOUNTER 2020-01-11 07:45 | Outpatient (CLI) | payer MEDICARE, OTHER ==
[2020-01-11 12:08] LABS: BASOPHILS % (AUTO) 0.5 %; EOSINOPHILS # (AUTO) 0.1 10^3/uL (0.0-0.7); EOSINOPHILS % (AUTO) 1.3 %; HGB - HEMOGLOBIN 12.2 g/dL (14.0-18.0); LYMPHOCYTES # (AUTO) 2.4 10^3/uL (1.5-3.5); MEAN CORPUSCULAR HEMOGLOBIN 29.8 pg (27.0-31.0); MEAN CORPUSCULAR HGB CONC 31.6 g/dL (32.0-36.0); MEAN CORPUSCULAR VOLUME 94.4 fL (80.0-94.0); MEAN PLATELET VOLUME 11.5 fL (7.4-11.4); MONOCYTES # (AUTO) 0.8 10^3/uL (0.0-1.0); NEUTROPHILS # (AUTO) 4.6 10^3/uL (1.5-6.6); NEUTROPHILS % (AUTO) 57.8 %; PLT - PLATELET COUNT 250 10^3/uL (130-450); RED BLOOD COUNT 4.09 10^6/uL (4.70-6.10); RED CELL DISTRIBUTION WIDTH 14.5 % (12.0-15.0); WHITE BLOOD COUNT 7.9 x10^3/uL (4.8-10.8)
[2020-01-11 12:23] LABS: ALBUMIN 3.7 g/dL (3.2-5.5); ALBUMIN/GLOBULIN RATIO 1.2 (1.0-2.2); ALKALINE PHOSPHATASE 55 IU/L (42-121); ALT ALANINE AMINOTRANSFERASE 22 IU/L (10-60); AST ASPARTATE AMINOTRANSFERASE 26 IU/L (10-42); BILIRUBIN,TOTAL 1.2 mg/dL (0.2-1.0); BUN - BLOOD UREA NITROGEN 16 mg/dL (6-20); CALCIUM 8.9 mg/dL (8.5-10.3); CARBON DIOXIDE - CO2 27 mmol/L (21-32); CHLORIDE 104 mmol/L (101-111); CHOL/HDL RATIO 3.3 (<5.0); CHOLESTEROL 150 mg/dL; CREATININE 1.1 mg/dL (0.6-1.2); GLUCOSE 96 mg/dL (70-100); HDL CHOLESTEROL 45 mg/dL; LDL CHOLESTEROL,CALCULATED 87 mg/dL; LDL/HDL RATIO 1.9 (<3.6); SODIUM 138 mmol/L (135-145); TOTAL PROTEIN 6.8 g/dL (6.7-8.2); VLDL CHOLESTEROL 18 mg/dL
== END 2020-01-11 23:59 | disposition home or self-care (01) ==
LOC: LAB.WCP 07:45
PROVIDERS: ATTEND Family Medicine
DX: N40.0 Benign prostatic hyperplasia without lower urinary tract symptoms (principal); I10 Essential (primary) hypertension
CPT/HCPCS: 36415; 80053; 80061; 83721; 84443; 85025

== ENCOUNTER 2020-01-17 08:00 | Outpatient (CLI) | payer MEDICARE, OTHER | END 2020-01-17 23:59 | disposition home or self-care (01) | LOC: LAB.WCP 08:00 | PROVIDERS: ATTEND Family Medicine | DX: I26.99 Other pulmonary embolism without acute cor pulmonale (principal); Z79.01 Long term (current) use of anticoagulants ==

== ENCOUNTER 2020-02-14 08:00 | Outpatient (CLI) | payer MEDICARE, OTHER | END 2020-02-14 23:59 | disposition home or self-care (01) | LOC: LAB.WCP 08:00 | PROVIDERS: ATTEND Family Medicine | DX: D68.59 Other primary thrombophilia (principal); Z79.01 Long term (current) use of anticoagulants; I26.99 Other pulmonary embolism without acute cor pulmonale ==

== ENCOUNTER 2020-03-13 08:00 | Outpatient (CLI) | payer MEDICARE, OTHER | END 2020-03-13 23:59 | disposition home or self-care (01) | LOC: LAB.WCP 08:00 | PROVIDERS: ATTEND Family Medicine | DX: D68.59 Other primary thrombophilia (principal); Z79.01 Long term (current) use of anticoagulants ==

== ENCOUNTER 2020-04-06 08:00 | Outpatient (CLI) | payer MEDICARE, OTHER | END 2020-04-06 23:59 | disposition home or self-care (01) | LOC: LAB.WCP 08:00 | PROVIDERS: ATTEND Physician Assistant Medical | DX: I26.99 Other pulmonary embolism without acute cor pulmonale (principal); Z79.01 Long term (current) use of anticoagulants ==

== ENCOUNTER 2020-05-08 08:00 | Outpatient (CLI) | payer MEDICARE, OTHER | END 2020-05-08 23:59 | disposition home or self-care (01) | LOC: LAB.WCP 08:00 | PROVIDERS: ATTEND Physician Assistant Medical | DX: Z79.01 Long term (current) use of anticoagulants (principal) ==

== ENCOUNTER 2020-06-05 08:00 | Outpatient (CLI) | payer MEDICARE, OTHER | END 2020-06-05 23:59 | disposition home or self-care (01) | LOC: LAB.WCP 08:00 | PROVIDERS: ATTEND Family Medicine | DX: Z79.01 Long term (current) use of anticoagulants (principal) ==

== ENCOUNTER 2020-07-03 08:00 | Outpatient (CLI) | payer MEDICARE, OTHER | END 2020-07-03 23:59 | disposition home or self-care (01) | LOC: LAB.WCP 08:00 | PROVIDERS: ATTEND Internal Medicine | DX: Z79.01 Long term (current) use of anticoagulants (principal) ==

== ENCOUNTER 2020-07-31 | Outpatient (CLI) | payer MEDICARE, OTHER | END 2020-07-31 23:59 | disposition home or self-care (01) | DX: Z79.01 Long term (current) use of anticoagulants (principal) ==

== ENCOUNTER 2020-09-01 08:00 | Outpatient (CLI) | payer MEDICARE, OTHER | END 2020-09-01 23:59 | disposition home or self-care (01) | LOC: LAB.WCP 08:00 | PROVIDERS: ATTEND Internal Medicine | DX: Z79.01 Long term (current) use of anticoagulants (principal) ==

== ENCOUNTER 2020-09-29 08:00 | Outpatient (CLI) | payer MEDICARE, OTHER | END 2020-09-29 23:59 | disposition home or self-care (01) | LOC: LAB.WCP 08:00 | PROVIDERS: ATTEND Internal Medicine | DX: Z79.01 Long term (current) use of anticoagulants (principal); I26.99 Other pulmonary embolism without acute cor pulmonale ==

== ENCOUNTER 2020-10-27 08:00 | Outpatient (CLI) | payer MEDICARE, OTHER | END 2020-10-27 23:59 | disposition home or self-care (01) | LOC: LAB.WCP 08:00 | PROVIDERS: ATTEND Internal Medicine | DX: D68.59 Other primary thrombophilia (principal); Z79.01 Long term (current) use of anticoagulants ==

== ENCOUNTER 2020-11-27 08:00 | Outpatient (CLI) | payer MEDICARE, OTHER | END 2020-11-27 23:59 | disposition home or self-care (01) | LOC: LAB.WCP 08:00 | PROVIDERS: ATTEND Internal Medicine | DX: D68.59 Other primary thrombophilia (principal); I26.99 Other pulmonary embolism without acute cor pulmonale; Z79.01 Long term (current) use of anticoagulants ==

== ENCOUNTER 2020-12-25 08:00 | Outpatient (CLI) | payer MEDICARE, OTHER | END 2020-12-25 23:59 | disposition home or self-care (01) | LOC: LAB.WCP 08:00 | PROVIDERS: ATTEND Internal Medicine | DX: D68.59 Other primary thrombophilia (principal); Z79.01 Long term (current) use of anticoagulants; I26.99 Other pulmonary embolism without acute cor pulmonale ==

== ENCOUNTER 2021-01-23 08:00 | Outpatient (CLI) | payer MEDICARE, OTHER ==
[2021-01-23 12:08] LABS: BASOPHILS % (AUTO) 0.6 %; EOSINOPHILS # (AUTO) 0.2 10^3/uL (0.0-0.7); EOSINOPHILS % (AUTO) 2.5 %; HCT - HEMATOCRIT 41.1 % (42.0-52.0); HGB - HEMOGLOBIN 12.9 g/dL (14.0-18.0); LYMPHOCYTES # (AUTO) 2.6 10^3/uL (1.5-3.5); LYMPHOCYTES % (AUTO) 38.8 %; MEAN CORPUSCULAR HEMOGLOBIN 29.7 pg (27.0-31.0); MEAN CORPUSCULAR HGB CONC 31.4 g/dL (32.0-36.0); MEAN CORPUSCULAR VOLUME 94.7 fL (80.0-94.0); MEAN PLATELET VOLUME 11.9 fL (7.4-11.4); MONOCYTES # (AUTO) 0.7 10^3/uL (0.0-1.0); NEUTROPHILS # (AUTO) 3.2 10^3/uL (1.5-6.6); NEUTROPHILS % (AUTO) 47.5 %; PLT - PLATELET COUNT 197 10^3/uL (130-450); RED BLOOD COUNT 4.34 10^6/uL (4.70-6.10); RED CELL DISTRIBUTION WIDTH 13.5 % (12.0-15.0); WHITE BLOOD COUNT 6.8 x10^3/uL (4.8-10.8)
[2021-01-23 12:30] LABS: ALBUMIN/GLOBULIN RATIO 1.6 (1.0-2.2); ALKALINE PHOSPHATASE 51 IU/L (42-121); ALT ALANINE AMINOTRANSFERASE 22 IU/L (10-60); AST ASPARTATE AMINOTRANSFERASE 27 IU/L (10-42); BILIRUBIN,TOTAL 0.9 mg/dL (0.2-1.0); BUN - BLOOD UREA NITROGEN 19 mg/dL (6-20); CALCIUM 9.2 mg/dL (8.5-10.3); CARBON DIOXIDE - CO2 27 mmol/L (21-32); CHLORIDE 103 mmol/L (101-111); CHOLESTEROL 186 mg/dL; CREATININE 1.1 mg/dL (0.6-1.2); GFR - MDRD 63 (>89); GLUCOSE 105 mg/dL (70-100); HDL CHOLESTEROL 46 mg/dL; LDL CHOLESTEROL,CALCULATED 119 mg/dL; LDL/HDL RATIO 2.6 (<3.6); POTASSIUM 4.6 mmol/L (3.5-5.0); SODIUM 139 mmol/L (135-145); TOTAL PROTEIN 6.5 g/dL (6.7-8.2); TRIGLYCERIDES 104 mg/dL; VLDL CHOLESTEROL 21 mg/dL
[2021-01-23 12:41] LABS: THYROID STIMULATING HORMONE 2.8 uIU/mL (0.34-5.60)
== END 2021-01-23 23:59 | disposition home or self-care (01) ==
LOC: LAB.WCP 08:00
PROVIDERS: ATTEND Internal Medicine
DX: I10 Essential (primary) hypertension (principal); E78.5 Hyperlipidemia, unspecified
CPT/HCPCS: 36415; 80053; 80061; 83721; 84443; 85025

== ENCOUNTER 2021-01-29 08:00 | Outpatient (CLI) | payer MEDICARE, OTHER | END 2021-01-29 23:59 | disposition home or self-care (01) | LOC: LAB.WCP 08:00 | PROVIDERS: ATTEND Internal Medicine | DX: D68.59 Other primary thrombophilia (principal); Z79.01 Long term (current) use of anticoagulants; I26.99 Other pulmonary embolism without acute cor pulmonale ==

== ENCOUNTER 2021-02-26 08:00 | Outpatient (CLI) | payer MEDICARE, OTHER | END 2021-02-26 23:59 | disposition home or self-care (01) | LOC: LAB.WCP 08:00 | PROVIDERS: ATTEND Internal Medicine | DX: D68.59 Other primary thrombophilia (principal); Z79.01 Long term (current) use of anticoagulants; I26.99 Other pulmonary embolism without acute cor pulmonale ==

== ENCOUNTER 2021-04-02 08:00 | Outpatient (CLI) | payer MEDICARE, OTHER | END 2021-04-02 23:59 | disposition home or self-care (01) | LOC: LAB.WCP 08:00 | PROVIDERS: ATTEND Internal Medicine | DX: D68.59 Other primary thrombophilia (principal); Z79.01 Long term (current) use of anticoagulants; I26.99 Other pulmonary embolism without acute cor pulmonale ==

== ENCOUNTER 2021-05-04 08:00 | Outpatient (CLI) | payer MEDICARE, OTHER | END 2021-05-04 23:59 | disposition home or self-care (01) | LOC: LAB.WCP 08:00 | PROVIDERS: ATTEND Internal Medicine | DX: I26.99 Other pulmonary embolism without acute cor pulmonale (principal); Z79.01 Long term (current) use of anticoagulants ==

== ENCOUNTER 2021-05-18 08:00 | Outpatient (CLI) | payer MEDICARE, OTHER | END 2021-05-18 23:59 | disposition home or self-care (01) | LOC: LAB.WCP 08:00 | PROVIDERS: ATTEND Internal Medicine | DX: D68.59 Other primary thrombophilia (principal); Z79.01 Long term (current) use of anticoagulants; I26.99 Other pulmonary embolism without acute cor pulmonale ==

== ENCOUNTER 2021-06-01 08:00 | Outpatient (CLI) | payer MEDICARE, OTHER | END 2021-06-01 23:59 | disposition home or self-care (01) | LOC: LAB.WCP 08:00 | PROVIDERS: ATTEND Internal Medicine | DX: D68.59 Other primary thrombophilia (principal); Z79.01 Long term (current) use of anticoagulants; I26.99 Other pulmonary embolism without acute cor pulmonale ==

== ENCOUNTER 2021-06-29 08:00 | Outpatient (CLI) | payer MEDICARE, OTHER | END 2021-06-29 23:59 | disposition home or self-care (01) | LOC: LAB.WCP 08:00 | PROVIDERS: ATTEND Internal Medicine | DX: D68.59 Other primary thrombophilia (principal); Z79.01 Long term (current) use of anticoagulants ==

== ENCOUNTER 2021-07-27 08:00 | Outpatient (CLI) | payer MEDICARE, OTHER | END 2021-07-27 23:59 | disposition home or self-care (01) | LOC: LAB.WCP 08:00 | PROVIDERS: ATTEND Internal Medicine | DX: D68.59 Other primary thrombophilia (principal); Z79.01 Long term (current) use of anticoagulants; I26.99 Other pulmonary embolism without acute cor pulmonale ==